=== PATIENT | female | born 1965 | race Caucasian/White ===

== ENCOUNTER → 2017-03-06 | Outpatient (CLI) | payer OTHER | LOC: BMCIMAGING 14:12 | PROVIDERS: ATTEND Internal Medicine | DX: M19.041 Primary osteoarthritis, right hand (principal); M19.042 Primary osteoarthritis, left hand ==

== ENCOUNTER 2017-04-24 11:00 | Emergency (ER) | payer OTHER ==
[2017-04-24 11:05] VITALS: TEMP 98.6
--- NOTE | 2017-04-24 11:17 | EDPHY ---
H & P Stated Complaint: chest discomfort since 8pm last night Time Seen by Provider: 04/24/17 11:17 - Personal History LMP (Females 10-55): Post Menopausal Current Tetanus/Diphtheria Vaccine: Unsure - Medical/Surgical History Hx Asthma: No Hx Chronic Respiratory Disease: No Hx Diabetes: No Hx Cardiac Disease: No Hx Renal Disease: No Hx Cirrhosis: No Hx Alcoholism: No Hx HIV/AIDS: No Hx Splenectomy or Spleen Trauma: No Other PMH: pvc - Social History Smoking Status: Never smoked Constitutional: Initial Vital Signs Temperature (C) 37 C 04/24/17 11:02 Heart Rate 88 04/24/17 11:02 Respiratory Rate 18 04/24/17 11:02 Blood Pressure 152/90 H 04/24/17 11:02 O2 Sat (%) 97 04/24/17 11:02 O2 Delivery Mode Room Air Allergies/Adverse Reactions: No Known Allergies Allergy (Verified 04/24/17 11:01) Home Medications: Medication Instructions Recorded Adderall 10 MG (*) 04/24/17 Medical Decision Making - Diagnostics Imaging Results: Imaging Impressions Chest X-Ray 04/24/17 11:31 Impression: No evidence of acute cardiopulmonary abnormality. Imaging: I viewed and interpreted images myself ED Course/Re-evaluation: CHIEF COMPLAINT: Lightheadedness, chest fullness HISTORY OF PRESENT ILLNESS: This patient is a 52 year old female complaining of chest fullness and lightheadedness. Yesterday around 8pm, she was sitting at the computer and had an odd sensation in her chest. She denies any pain, stabbing sensation, or pressure. She does not have any difficulty breathing, but endorses a "subconscious" desire to not take deep breaths. She has history of PVCs but states the sensation did not feel similar to this. Following the onset of her symptoms, she sat on the couch, and when she got up, she felt lightheaded. She had some very mild nausea. She checked her Fitbit and noted that she was not tachycardic. Her chest discomfort was intermittent. Her noted some "skipped" beats when she asked him to listen, and the patient noted her symptoms were exacerbated at those times. Additionally, she had an odd sensation in her scalp and an aching sensation in her arm. She has not had any prior cardiac workup. She denies fever, abdominal pain, urinary complaints, vomiting, or other associated symptoms. REVIEW OF SYSTEMS: A 10 point review of systems was performed and is negative with the exception of the elements mentioned in the history of present illness. PHYSICAL EXAM: HR, BP, O2 Sat, RR. Temp noted General Appearance: Alert, well hydrated, appropriate, and non-toxic appearing. Head: Atraumatic without scalp tenderness or obvious injury Eyes: Pupils equal, round, reactive to light and accommodation, EOMI, no trauma , no injection. Ears: Clear bilaterally, no perforation, normal landmarks Nose: Atraumatic, no rhinorrhea, clear. Throat: There is no erythema or exudates, no lesions, normal tonsils, mucus membranes moist. Neck: Supple, 2+ carotid upstroke, nontender, no lymphadenopathy. Respiratory: No retractions, no distress, no wheezes, and no accessory muscle use. Lungs are clear to auscultation bilaterally. Cardiovascular: Regular rate and rhythm, no murmurs, rubs, or gallops. Bilateral carotid, radial, dorsalis pedis, and posterior tibial pulses intact. Good capillary refill all extremities. Gastrointestinal: Abdomen is soft, nontender, non-distended, no masses, no rebound, no guarding, no peritoneal signs. Musculoskeletal: Normal active ROM of all extremities, atraumatic. Neurological: Alert, appropriate, and interactive. The patient has normal DTRs and non-focal cranial nerves, motor, sensory, and cerebellar exam. Skin: No rashes, good turgor, no nodules on palpation. Past medical history: PVCs. Past surgical history: Noncontributory. Family history: History of CAD, cardiomegaly, and diabetes in family. Social history: Formerly heavy alcohol use, sober since 03/03/17. . at bedside. PCP Dr. Pettit. DIAGNOSTICS/PROCEDURES/CRITICAL CARE TIME: The 12 lead EKG was interpreted by myself. See hard copy and/or "tracemaster" electronic copy for interpretation. DIFFERENTIAL DIAGNOSIS: The differential diagnosis for the patient's dizziness included but was not limited to peripheral and central causes of vertigo, orthostatic causes including dehydration, cardiogenic and neurogenic causes, and blood loss. MEDICAL DECISION MAKIN52 year old female presents with an abnormal chest sensation and lightheadedness onset yesterday evening. Exam unremarkable. Plan for EKG, chest x-ray, labs including CBC, chemistries, troponin. EKG shows sinus rhythm. Chest x-ray normal. 12:08 Laboratory studies unremarkable. Negative troponin and D-dimer. 12:15 Plan to discharge patient home in good condition. Referral to cardiology for outpatient treadmill test and further evaluation given. Follow up and return precautions discussed. She is comfortable with this plan. - Data Points Laboratory Results: Laboratory Results 04/24/17 11:20 04/24/17 11:20 04/24/17 04/24/17 04/24/17 11:20 11:20 11:20 WBC 5.80 10^3/uL 10^3/uL (3.80-9.50) RBC 5.07 10^6/uL 10^6/uL (4.18-5.33) Hgb 14.9 g/dL g/dL (12.6-16.3) Hct 42.8 % % (38.0-47.0) MCV 84.4 fL fL (81.5-99.8) MCH 29.4 pg pg (27.9-34.1) MCHC 34.8 g/dL g/dL (32.4-36.7) RDW 11.8 % % (11.5-15.2) Plt Count 278 10^3/uL 10^3/uL (150-400) MPV 9.4 fL fL (8.7-11.7) Neut % (Auto) 46.2 % % (39.3-74.2) Lymph % (Auto) 43.8 % % (15.0-45.0) [place] % (Auto) 6.0 % % (4.5-13.0) Eos % (Auto) 2.4 % % (0.6-7.6) Baso % (Auto) 1.4 % % (0.3-1.7) Nucleat RBC Rel Count 0.0 % % (0.0-0.2) Absolute Neuts (auto) 2.68 10^3/uL 10^3/uL (1.70-6.50) Absolute Lymphs (auto) 2.54 10^3/uL 10^3/uL (1.00-3.00) Absolute Monos (auto) 0.35 10^3/uL 10^3/uL (0.30-0.80) Absolute Eos (auto) 0.14 10^3/uL 10^3/uL (0.03-0.40) Absolute Basos (auto) 0.08 10^3/uL 10^3/uL (0.02-0.10) Absolute Nucleated RBC 0.00 10^3/uL 10^3/uL (0-0.01) Immature Gran % 0.2 % % (0.0-1.1) Immature Gran # 0.01 10^3/uL 10^3/uL (0.00-0.10) D-Dimer 0.27 ug/mLFEU ug/mLFEU (0.00-0.50) Sodium 141 mEq/L mEq/L (135-145) Potassium 4.1 mEq/L mEq/L (3.5-5.2) Chloride 105 mEq/L mEq/L (97-110) Carbon Dioxide 22 mEq/l mEq/l (22-31) Anion Gap 14 mEq/L mEq/L (8-16) BUN 15 mg/dL mg/dL (7-23) Creatinine 0.8 mg/dL mg/dL (0.6-1.0) Estimated GFR > 60 Glucose 105 mg/dL H mg/dL (70-100) Calcium 10.2 mg/dL mg/dL (8.5-10.4) Troponin I < 0.012 ng/mL ng/mL (0.000-0.034) NT-Pro-B Natriuret Pep 44 pg/mL pg/mL (0-125) Departure - Departure Disposition: Home, Routine, Self-Care Clinical Impression: Chest pain Qualifiers: Chest pain type: other chest pain Qualified Code(s): R07.89 - Other chest pain Condition: Good Instructions: Chest Pain (ED) Additional Instructions: Follow-up with your primary doctor within 2-3 days. Follow up with a guidance counselor for further testing as soon as possible. Call today to make an appointment for a treadmill test, preferably tomorrow. We have referred you to our cardiology group extension edger. Return to the Emergency Department for fever, chest pain, shortness of breath, increasing pain or other worsening of condition. Referrals: Miguelito Pettit MD [Primary Care Provider] - As per Instructions [facility] [Provider Group] - As per Instructions Niko Ledezma MD [Medical Doctor] - As per Instructions Report Scribed for: Terrance Caraballo Report Scribed by: Shaina Jason Date of Report: 04/24/17 Time of Report: 11:35
--- NOTE | 2017-04-24 11:23 | CPEKG ---
Heart Rate: 79 RR Interval: 759 P-R Interval: 156 QRSD Interval: 76 QT Interval: 372 QTC Interval: 427 P Sand[place]: 74 QRS Sandgap: -10 T Wave Sandgap: 18 EKG Severity - BORDERLINE ECG - EKG Impression: SINUS RHYTHM EKG Impression: PROBABLE LEFT ATRIAL ABNORMALITY Electronically Signed By: Terrance Caraballo 24-Apr-2017 14:09:33
[2017-04-24 11:54] LABS: PLATELET COUNT 278 10^3/uL (150-400)
[2017-04-24 12:38] VITALS: BP 127/92; RESP 16; O2SAT 96
[2017-04-24 12:57] VITALS: PULSE 70
--- NOTE | 2017-04-25 11:31 | ASMTCMCOM ---
CM Note CM Note Notes: I have called [facility] and spoke with Michelle. Appointment made for treadmill test this April 28 at 2:00 PM at the [place] location. Patient's appointment with acrobatic dancer remains unchanged for next May 01 at 1:45 PM. I have called patient and confirmed both appointments with her Date Signed: 04/25/2017 11:30 AM Electronically Signed By:Katherine Lane RN
== END 2017-04-24 12:57 | disposition home or self-care (01) ==
DX: R07.89 Other chest pain (principal)

== ENCOUNTER → 2017-06-21 | Outpatient (CLI) | payer OTHER | LOC: FIMAGING 15:30 | PROVIDERS: ATTEND Obstetrics & Gynecology | DX: Z12.31 Encounter for screening mammogram for malignant neoplasm of breast (principal) ==

== ENCOUNTER → 2017-06-27 | Outpatient (CLI) | payer OTHER | LOC: FIMAGING 16:49 | PROVIDERS: ATTEND Internal Medicine | DX: M79.89 Other specified soft tissue disorders (principal) ==